=== PATIENT | male | born 1955 | race Caucasian/White ===

== ENCOUNTER 2023-04-08 11:25 | Inpatient (IN) | payer OTHER ==
[2023-04-08] MEDS ORDERED: NOREPINEPHRINE BITARTRATE/D5W 8 MG/250 ML BAG IVPB ONE (11:45)
[2023-04-08] MEDS ORDERED: MIDAZOLAM 100 MG in SODIUM CHLORIDE 100 ML IVPB SCH (12:00)
[2023-04-08] MEDS ORDERED: ACETAMINOPHEN 1000 MG/100 ML BAG IVPB ONE (12:08)
[2023-04-08] MEDS ORDERED: VASopressin 20 UNITS/ML VIAL IV ONE (12:11)
[2023-04-08] MEDS ORDERED: MIDAZOLAM IN 0.9 % SOD.CHLORID 1 MG/1 ML PLAST..BAG ONE (12:11)
[2023-04-08] MEDS: VASopressin 40 UNITS/100 ML BAG IV SCH (12:22)
[2023-04-08] MEDS ORDERED: NOREPINEPHRINE BITARTRATE 4,000 MCG in DEXTROSE 5%-WATER - 496 ML IV SCH ×2 (12:30→12:39)
[2023-04-08] MEDS ORDERED: HYDROCORTISONE SOD SUCCINATE 100 MG/2 ML VIAL IVPUSH ONE (12:38)
[2023-04-08] MEDS ORDERED: FENTANYL NS IVPB 500 MCG/100 ML BAG IVPB ONE (12:44)
[2023-04-08] MEDS ORDERED: FLUDROCORTISONE ACETATE 0.1 MG TABLET (FP) PO SCH (12:45)
[2023-04-08] MEDS: FENTANYL NS IVPB 500 MCG/100 ML BAG IVPB SCH ×2 (12:52→18:49)
[2023-04-08] MEDS ORDERED: HYDROCORTISONE SOD SUCCINATE 100 MG/2 ML VIAL ONE (12:54)
[2023-04-08 13:05] LABS: POTASSIUM 3.9 mmol/L (3.5-5.1)
[2023-04-08 13:06] LABS: HEMATOCRIT 44.1 % (35.4-49); MCH 29.8 pg (25.7-33.7); MCHC 31.7 g/dl (32.0-35.9); MEAN PLT VOLUME 7.7 fl (7.5-11.1); PLATELET COUNT 166 10^3/uL (134-434); RBC 4.69 M/mm3 (4.00-5.60); RDW 15.3 % (11.9-15.9); WHITE BLOOD COUNT 19.1 K/mm3 (4.0-10.0)
[2023-04-08] MEDS: MIDAZOLAM IN 0.9 % SOD.CHLORID 100 MG/100 ML PLAST..BAG IVPB SCH ×2 (13:06→18:48)
[2023-04-08 13:08] LABS: ALBUMIN 2.4 g/dl (3.4-5.0); BLOOD UREA NITROGEN 31.4 mg/dL (7-18); MAGNESIUM 2.4 mg/dL (1.8-2.4)
[2023-04-08 13:11] LABS: CREATININE 4.5 mg/dL (0.55-1.3)
[2023-04-08 13:12] LABS: BILIRUBIN,TOTAL 0.8 mg/dL (0.2-1); TOT PROT 5.6 g/dl (6.4-8.2)
[2023-04-08] MEDS ORDERED: DOPAMINE 400 MG/D5W - 400,000 MCG/250 ML INFUS.BAG IVPB ONE (13:30)
[2023-04-08] MEDS ORDERED: VANCOMYCIN 1,000 MG in DEXTROSE 5%-WATER - 250 ML IVPB ONE (13:31)
[2023-04-08] MEDS ORDERED: PIPERACILLIN/TAZOB 4.5 GM 4.5 GM in DEXTROSE 5%-WATER 100 ML IVPB ONE (13:31)
[2023-04-08 13:37] LABS: LACTIC ACID 12.7 mmol/L (0.4-2.0)
[2023-04-08] MEDS: NOREPINEPHRINE BITARTRATE/D5W 8 MG/250 ML BAG IVPB SCH (13:42)
[2023-04-08] MEDS: DOPAMINE 400 MG/D5W - 400,000 MCG/250 ML INFUS.BAG IVPB SCH (13:42)
[2023-04-08 13:46] LABS: CALCIUM 13.6 mg/dL (8.5-10.1); PHOSPHOROUS 8.7 mg/dL (2.5-4.9)
[2023-04-08] MEDS ORDERED: ACETAMINOPHEN 1000 MG/100 ML BAG IVPB PRN (13:48)
[2023-04-08 13:55] LABS: VENOUS BASE EXCESS -17.9 mmol/L (-2-2); VENOUS O2 SATURATION 94.9 % (70-80); VENOUS PCO2 35.7 mmHg (38-52); VENOUS PH 7.099 (7.310-7.410)
[2023-04-08 13:56] LABS: EPI CELLS 6 /uL (0-25.1); HYALINE CASTS 1 /uL (0-3.1); URINE APPEARANCE CLOUDY; URINE BACTERIA 177 /uL (0-1359); URINE BILIRUBIN NEGATIVE (NEGATIVE); URINE COLOR YELLOW; URINE GLUCOSE (UA) NEGATIVE (NEGATIVE); URINE KETONE 3+ (NEGATIVE); URINE LEUK ESTERASE NEGATIVE (NEGATIVE); URINE NITRITE NEGATIVE (NEGATIVE); URINE PROTEIN 2+ (NEGATIVE); URINE RBC 65 /uL (0-23.9); URINE UROBILINOGEN 0.2 mg/dL (0.2-1.0)
[2023-04-08 14:09] LABS: ANISOCYTOSIS 0; MACROCYTOSIS 0
[2023-04-08] MEDS ORDERED: SODIUM CHLORIDE 0.9% 500 ML INFUS.BAG IV ONE (14:55)
[2023-04-08] MEDS ORDERED: LACTATED RINGERS SOLUTION 1000 ML INFUS.BAG IV ONE ×2 (15:27→15:28)
[2023-04-08] MEDS: MUPIROCIN 2% TOPICAL OINTMENT FOR DECOLONIZATION NS SCH ×2 (15:39→22:18)
[2023-04-08 15:59] LABS: URINE WBC 307 /uL (0-25.8)
[2023-04-08] MEDS: PANTOPRAZOLE SODIUM 40 MG VIAL IVPUSH SCH (16:09)
[2023-04-08] MEDS ORDERED: VANCOMYCIN/WATER 2 GRAMS 2,000 MG/400 ML PIGGYBACK IVPB ONE (17:00)
[2023-04-08] MEDS ORDERED: SODIUM BICARBONATE 8.4% 50 MEQ/50 ML DISP.SYRIN ONE (17:28)
[2023-04-08] MEDS ORDERED: SODIUM BICARBONATE 8.4% 50 MEQ/50 ML DISP.SYRIN IVPUSH ONE (18:34)
[2023-04-08 18:50] LABS: HEMATOCRIT 40.8 % (35.4-49); HEMOGLOBIN 13.3 GM/dL (11.7-16.9); MCH 29.2 pg (25.7-33.7); MCHC 32.5 g/dl (32.0-35.9); MEAN CELL VOLUME 89.9 fl (80-96); MEAN PLT VOLUME 6.9 fl (7.5-11.1); PLATELET COUNT 104 10^3/uL (134-434); RBC 4.54 M/mm3 (4.00-5.60); RDW 14.6 % (11.9-15.9); WHITE BLOOD COUNT 18.2 K/mm3 (4.0-10.0)
[2023-04-08 20:32] LABS: INR 1.9 (0.83-1.09); PROTHROMBIN TIME (PATIENT) 21.9 SEC (9.7-13.0)
[2023-04-08 20:35] LABS: ACTIVATED PTT 43.4 SECONDS (25.2-36.5)
[2023-04-08 20:46] LABS: ANISOCYTOSIS 1+; MACROCYTOSIS 0; PLATELET ESTIMATE DECREASED
[2023-04-08] MEDS: SODIUM BICARBONATE 8.4% - 150 MEQ in DEXTROSE 5%-WATER - 1,000 ML IV SCH (22:17)
[2023-04-08] MEDS: CHLORHEXIDINE GLUCONATE 4% CLEANSER FOR DECOLONIZATION TP SCH (22:18)
[2023-04-08 22:24] LABS: ALBUMIN 2.2 g/dl (3.4-5.0); BILIRUBIN,TOTAL 1.4 mg/dL (0.2-1); BLOOD UREA NITROGEN 36.1 mg/dL (7-18); CALCIUM 7.6 mg/dL (8.5-10.1); CREATININE 4.5 mg/dL (0.55-1.3); POTASSIUM 3.6 mmol/L (3.5-5.1); TOT PROT 5.1 g/dl (6.4-8.2)
[2023-04-08 22:30] LABS: LACTIC ACID 7.3 mmol/L (0.4-2.0)
[2023-04-08] MEDS ORDERED: LACTATED RINGERS SOLUTION 1,000 ML/1,000 ML INFUS.BAG IV STA (23:46)
[2023-04-09] MEDS: PIPERACILLIN/TAZOB 2.25 GM 2.25 GM in DEXTROSE 5%-WATER - 50 ML IVPB SCH ×5 (02:05→17:31)
[2023-04-09 06:34] LABS: ARTERIAL BLD GAS O2 SATURATION 99.5 % (95-98); ARTERIAL BLOOD GAS PO2 238.9 mmHg (80-100); ARTERIAL BLOOD GAS pH 7.355 (7.350-7.450)
[2023-04-09 06:43] LABS: ALLENS TEST POSITIVE
[2023-04-09 06:44] LABS: PT'S TEMP 95.4; VENT MODE A/C; VENT RATE 18
[2023-04-09] MEDS ORDERED: INSULIN REGULAR HUMAN 100 UNITS/ML *VIAL IVPUSH ONE (07:12)
[2023-04-09] MEDS ORDERED: LACTATED RINGERS SOLUTION 1,000 ML/1,000 ML INFUS.BAG IV ONE (07:13)
[2023-04-09] MEDS ORDERED: INSULIN (NOVOLOG) ASPART 100 UNITS/ML 10ML VIAL SQ ONE ×2 (07:38→12:21)
[2023-04-09 07:59] LABS: CHLORIDE 104 mmol/L (98-107); POTASSIUM 3.5 mmol/L (3.5-5.1); SODIUM 135 mmol/L (136-145)
[2023-04-09 08:07] LABS: CALCIUM 7.3 mg/dL (8.5-10.1)
[2023-04-09 08:08] LABS: ANION GAP 14 mmol/L (4-13); BLOOD UREA NITROGEN 37.4 mg/dL (7-18); CO2 17 mmol/L (21-32); MAGNESIUM 1.7 mg/dL (1.8-2.4)
[2023-04-09 08:11] LABS: CREATININE 4.5 mg/dL (0.55-1.3); PHOSPHOROUS 2.5 mg/dL (2.5-4.9)
[2023-04-09 08:12] LABS: BILIRUBIN,TOTAL 1.4 mg/dL (0.2-1); SGPT/ALT 638 U/L (13-61); TOT PROT 4.8 g/dl (6.4-8.2)
[2023-04-09 08:13] LABS: ALK PHOS 59 U/L (45-117)
[2023-04-09] MEDS ORDERED: MAGNESIUM 1GM/D5W - 1 GM/100 ML IVPB IVPB ONE (08:19)
[2023-04-09 08:42] LABS: GLUCOSE,RANDOM 427 mg/dL (74-106); SGOT/AST 1430 U/L (15-37)
[2023-04-09 09:14] LABS: INR 1.65 (0.83-1.09)
[2023-04-09 09:33] LABS: HEMATOCRIT 42.7 % (35.4-49); HEMOGLOBIN 14.2 GM/dL (11.7-16.9); MCH 29.2 pg (25.7-33.7); MCHC 33.2 g/dl (32.0-35.9); MEAN CELL VOLUME 88.1 fl (80-96); MEAN PLT VOLUME 7.4 fl (7.5-11.1); PLATELET COUNT 67 10^3/uL (134-434); RBC 4.85 M/mm3 (4.00-5.60); RDW 14.6 % (11.9-15.9); WHITE BLOOD COUNT 15.4 K/mm3 (4.0-10.0)
[2023-04-09] MEDS: MUPIROCIN 2% TOPICAL OINTMENT FOR DECOLONIZATION NS SCH ×2 (10:00→21:20)
[2023-04-09] MEDS: FLUDROCORTISONE ACETATE 0.1 MG TABLET (FP) NGT SCH (10:01)
[2023-04-09] MEDS: PANTOPRAZOLE SODIUM 40 MG VIAL IVPUSH SCH (10:01)
[2023-04-09 10:03] LABS: LACTIC ACID 4.4 mmol/L (0.4-2.0)
[2023-04-09 10:04] LABS: ANISOCYTOSIS 3+; MACROCYTOSIS 0
[2023-04-09] MEDS: SODIUM BICARBONATE 8.4% - 150 MEQ in DEXTROSE 5%-WATER - 1,000 ML IV SCH ×2 (10:04→22:32)
[2023-04-09] MEDS: MIDAZOLAM IN 0.9 % SOD.CHLORID 100 MG/100 ML PLAST..BAG IVPB SCH (12:29)
[2023-04-09] MEDS ORDERED: INSULIN ASPART SLIDING SCALE (NOVOLOG) 1 VIAL SQ SCH (12:30)
[2023-04-09] MEDS: DOPAMINE 400 MG/D5W - 400,000 MCG/250 ML INFUS.BAG IVPB SCH (13:18)
[2023-04-09] MEDS: FENTANYL NS IVPB 500 MCG/100 ML BAG IVPB SCH (13:50)
[2023-04-09] MEDS: NOREPINEPHRINE BITARTRATE/D5W 8 MG/250 ML BAG IVPB SCH (14:37)
[2023-04-09] MEDS ORDERED: INSULIN REGULAR HUMAN 100 UNITS/ML *VIAL* (FOR IVP) IVPUSH ONE (15:43)
[2023-04-09] MEDS ORDERED: INSULIN REGULAR 100 UNITS in SODIUM CHLORIDE 99 ML IVPB SCH (15:45)
[2023-04-09] MEDS: KCL 10 MEQ IVPB 10 MEQ/100 ML INFUS.BAG IVPB SCH ×3 (16:05→17:32)
[2023-04-09] MEDS ORDERED: INSULIN REGULAR HUMAN 100 UNITS/ML *VIAL ONE ×2 (16:29→18:35)
[2023-04-09] MEDS: NOREPINEPHRINE 0.9 % NACL 8 MG/250 ML BAG IVPB SCH (17:29)
[2023-04-09] MEDS: VASopressin 40 UNITS/100 ML BAG IV SCH (17:32)
[2023-04-09] MEDS ORDERED: LACTATED RINGERS SOLUTION 1000 ML INFUS.BAG IV ONE ×3 (19:30→20:00)
[2023-04-09 20:11] LABS: BASO % 0.1 % (0-2.0); EOS % 0.7 % (0-4.5); HEMATOCRIT 35.1 % (35.4-49); HEMOGLOBIN 11.9 GM/dL (11.7-16.9); LYMPH % 12.9 % (8-40); MCH 29.5 pg (25.7-33.7); MCHC 33.8 g/dl (32.0-35.9); MEAN CELL VOLUME 87.4 fl (80-96); MEAN PLT VOLUME 7.1 fl (7.5-11.1); NEUT % 84.3 % (42.8-82.8); PLATELET COUNT 40 10^3/uL (134-434); RBC 4.02 M/mm3 (4.00-5.60); RDW 14.4 % (11.9-15.9); WHITE BLOOD COUNT 12.1 K/mm3 (4.0-10.0)
[2023-04-09 20:32] LABS: CHLORIDE 106 mmol/L (98-107); SODIUM 135 mmol/L (136-145)
[2023-04-09 20:34] LABS: CO2 18 mmol/L (21-32); GLUCOSE,RANDOM 389 mg/dL (74-106)
[2023-04-09 20:35] LABS: BLOOD UREA NITROGEN 41.8 mg/dL (7-18)
[2023-04-09 20:38] LABS: CREATININE 5.2 mg/dL (0.55-1.3)
[2023-04-09 20:41] LABS: ANION GAP 12 mmol/L (4-13); CALCIUM 6.9 mg/dL (8.5-10.1); POTASSIUM 2.9 mmol/L (3.5-5.1)
[2023-04-09] MEDS ORDERED: CALCIUM GLUC IN NACL, ISO-OSM 1 GM/50 ML BAG IVPB ONE (20:45)
[2023-04-09] MEDS: CHLORHEXIDINE GLUCONATE 4% CLEANSER FOR DECOLONIZATION TP SCH (21:20)
[2023-04-09] MEDS ORDERED: KCL 20 MEQ PREMIX BAG 20 MEQ/100 ML INFUS.BAG IVPB ONE (21:44)
[2023-04-10] MEDS: PIPERACILLIN/TAZOB 2.25 GM 2.25 GM in DEXTROSE 5%-WATER - 50 ML IVPB SCH ×3 (01:02→17:16)
[2023-04-10] MEDS: VASopressin 40 UNITS/100 ML BAG IV SCH ×3 (02:00→21:48)
[2023-04-10] MEDS: EPINEPHrine 1:1,000 1,000 MCG in DEXTROSE 5%-WATER - 249 ML IVPB SCH (02:50)
[2023-04-10 03:10] LABS: LACTIC ACID 7.2 mmol/L (0.4-2.0)
[2023-04-10 05:53] LABS: HEMATOCRIT 43.9 % (35.4-49); HEMOGLOBIN 14.9 GM/dL (11.7-16.9); MCH 29.2 pg (25.7-33.7); MCHC 33.9 g/dl (32.0-35.9); MEAN CELL VOLUME 86.1 fl (80-96); MEAN PLT VOLUME 8.5 fl (7.5-11.1); PLATELET COUNT 64 10^3/uL (134-434); RDW 15.5 % (11.9-15.9); WHITE BLOOD COUNT 7.9 K/mm3 (4.0-10.0)
[2023-04-10 06:12] LABS: CHLORIDE 106 mmol/L (98-107); SODIUM 138 mmol/L (136-145)
[2023-04-10 06:13] LABS: BLOOD UREA NITROGEN 42.4 mg/dL (7-18); CALCIUM 7.2 mg/dL (8.5-10.1); CO2 18 mmol/L (21-32); GLUCOSE,RANDOM 300 mg/dL (74-106)
[2023-04-10 06:15] LABS: ALBUMIN 1.6 g/dl (3.4-5.0)
[2023-04-10 06:16] LABS: ARTERIAL BLOOD GAS BASE EXCESS -10.4 mmol/L (-2-2); ARTERIAL BLOOD GAS PO2 72.2 mmHg (80-100); ARTERIAL BLOOD GAS pH 7.241 (7.350-7.450)
[2023-04-10 06:17] LABS: SGPT/ALT 362 U/L (13-61)
[2023-04-10 06:18] LABS: CREATININE 5.4 mg/dL (0.55-1.3); SGOT/AST 373 U/L (15-37)
[2023-04-10 06:18] LABS: VENT MODE A/C
[2023-04-10 06:19] LABS: VENT RATE 18
[2023-04-10 06:19] LABS: BILIRUBIN,TOTAL 1.1 mg/dL (0.2-1); TOT PROT 4.1 g/dl (6.4-8.2)
[2023-04-10 06:20] LABS: ALK PHOS 51 U/L (45-117)
[2023-04-10 07:04] LABS: LACTIC ACID 7.4 mmol/L (0.4-2.0)
[2023-04-10 07:04] LABS: ANION GAP 13 mmol/L (4-13); POTASSIUM 2.3 mmol/L (3.5-5.1)
[2023-04-10] MEDS ORDERED: MAGNESIUM SULFATE IN WATER 2 GM/50 ML IVPB IVPB ONE (07:56)
[2023-04-10] MEDS: KCL 20 MEQ PREMIX BAG 20 MEQ/100 ML INFUS.BAG IVPB SCH ×3 (09:00→11:00)
[2023-04-10] MEDS: INSULIN ASPART SLIDING SCALE (NOVOLOG) 1 VIAL SQ SCH ×4 (09:19→20:58)
[2023-04-10] MEDS: MUPIROCIN 2% TOPICAL OINTMENT FOR DECOLONIZATION NS SCH ×2 (09:20→21:55)
[2023-04-10] MEDS: SODIUM BICARBONATE 8.4% - 150 MEQ in DEXTROSE 5%-WATER - 1,000 ML IV SCH ×3 (09:20→21:33)
[2023-04-10] MEDS: PANTOPRAZOLE SODIUM 40 MG VIAL IVPUSH SCH (09:22)
[2023-04-10] MEDS: NOREPINEPHRINE 0.9 % NACL 8 MG/250 ML BAG IVPB SCH ×3 (09:22→23:44)
[2023-04-10] MEDS: FLUDROCORTISONE ACETATE 0.1 MG TABLET (FP) NGT SCH (09:23)
[2023-04-10 11:29] LABS: ANISOCYTOSIS 0; MACROCYTOSIS 0
[2023-04-10 13:19] VITALS: BMI 32.1
[2023-04-10] MEDS ORDERED: INSULIN (NOVOLOG) ASPART 100 UNITS/ML 10ML VIAL ONE (13:55)
[2023-04-10] MEDS ORDERED: NOREPINEPHRINE BITARTRATE 4 MG/4 ML ML IV ONE (17:08)
[2023-04-10] MEDS ORDERED: VANCOMYCIN/WATER FOR INJ (PEG) 1,000 MG/200 ML BAG IVPB ONE (18:00)
[2023-04-10 18:28] VITALS: RESP 18
[2023-04-10] MEDS: CHLORHEXIDINE GLUCONATE 4% CLEANSER FOR DECOLONIZATION TP SCH (21:55)
[2023-04-10 23:57] LABS: HEMATOCRIT 41.8 % (35.4-49); HEMOGLOBIN 14.1 GM/dL (11.7-16.9); MCH 28.6 pg (25.7-33.7); MCHC 33.7 g/dl (32.0-35.9); MEAN CELL VOLUME 84.8 fl (80-96); MEAN PLT VOLUME 8.9 fl (7.5-11.1); RBC 4.93 M/mm3 (4.00-5.60); RDW 16.3 % (11.9-15.9); WHITE BLOOD COUNT 13.7 K/mm3 (4.0-10.0)
[2023-04-11 00:02] LABS: PLATELET COUNT 27 10^3/uL (134-434)
[2023-04-11] MEDS: INSULIN ASPART SLIDING SCALE (NOVOLOG) 1 VIAL SQ SCH ×7 (01:37→23:59)
[2023-04-11] MEDS: PIPERACILLIN/TAZOB 2.25 GM 2.25 GM in DEXTROSE 5%-WATER - 50 ML IVPB SCH ×3 (02:05→17:12)
[2023-04-11 04:25] LABS: PLATELET ESTIMATE DECREASED
[2023-04-11] MEDS: NOREPINEPHRINE 0.9 % NACL 8 MG/250 ML BAG IVPB SCH ×4 (05:11→20:47)
[2023-04-11] MEDS: SODIUM BICARBONATE 8.4% - 150 MEQ in DEXTROSE 5%-WATER - 1,000 ML IV SCH (06:03)
[2023-04-11 06:18] LABS: ARTERIAL BLD GAS O2 SATURATION 98.8 % (95-98); ARTERIAL BLOOD GAS PO2 143.2 mmHg (80-100); ARTERIAL BLOOD GAS pH 7.366 (7.350-7.450)
[2023-04-11 06:31] LABS: VENT MODE A/C; VENT RATE 18
[2023-04-11 07:06] LABS: HEMATOCRIT 39.9 % (35.4-49); HEMOGLOBIN 13.6 GM/dL (11.7-16.9); MCH 28.8 pg (25.7-33.7); MEAN CELL VOLUME 84.7 fl (80-96); MEAN PLT VOLUME 8.4 fl (7.5-11.1); RBC 4.71 M/mm3 (4.00-5.60); RDW 16.3 % (11.9-15.9)
[2023-04-11 07:18] LABS: POTASSIUM 3.4 mmol/L (3.5-5.1)
[2023-04-11 07:20] LABS: PLATELET COUNT 36 10^3/uL (134-434)
[2023-04-11 07:38] LABS: ALBUMIN 1.6 g/dl (3.4-5.0); BLOOD UREA NITROGEN 46.5 mg/dL (7-18); CALCIUM 7.5 mg/dL (8.5-10.1); MAGNESIUM 1.5 mg/dL (1.8-2.4)
[2023-04-11 07:40] LABS: PHOSPHOROUS 4.3 mg/dL (2.5-4.9)
[2023-04-11 07:41] LABS: BILIRUBIN,TOTAL 1.3 mg/dL (0.2-1); CREATININE 5.7 mg/dL (0.55-1.3); TOT PROT 4.1 g/dl (6.4-8.2)
[2023-04-11 09:19] LABS: ANISOCYTOSIS 0; MACROCYTOSIS 0
[2023-04-11] MEDS ORDERED: MAGNESIUM SULFATE IN WATER 2 GM/50 ML IVPB IVPB ONE (09:30)
[2023-04-11] MEDS ORDERED: INSULIN (NOVOLOG) ASPART 100 UNITS/ML 10ML VIAL ONE (09:41)
[2023-04-11] MEDS: MUPIROCIN 2% TOPICAL OINTMENT FOR DECOLONIZATION NS SCH ×2 (09:48→21:04)
[2023-04-11] MEDS: FLUDROCORTISONE ACETATE 0.1 MG TABLET (FP) NGT SCH (09:48)
[2023-04-11] MEDS: PANTOPRAZOLE SODIUM 40 MG VIAL IVPUSH SCH (09:49)
[2023-04-11] MEDS ORDERED: NOREPINEPHRINE BITARTRATE 4 MG/4 ML ML IV ONE ×3 (10:29→20:42)
[2023-04-11] MEDS: KCL 20 MEQ PREMIX BAG 20 MEQ/100 ML INFUS.BAG IVPB SCH ×3 (11:00→14:00)
[2023-04-11] MEDS: VASopressin 40 UNITS/100 ML BAG IV SCH (13:39)
[2023-04-11] MEDS: CHLORHEXIDINE GLUCONATE 4% CLEANSER FOR DECOLONIZATION TP SCH (21:04)
[2023-04-11] MEDS: EPINEPHrine 1:1,000 1,000 MCG in DEXTROSE 5%-WATER - 249 ML IVPB SCH (21:04)
[2023-04-12] MEDS: PIPERACILLIN/TAZOB 2.25 GM 2.25 GM in DEXTROSE 5%-WATER - 50 ML IVPB SCH ×2 (01:01→09:26)
[2023-04-12] MEDS: NOREPINEPHRINE 0.9 % NACL 8 MG/250 ML BAG IVPB SCH ×2 (02:28→08:30)
[2023-04-12] MEDS: INSULIN ASPART SLIDING SCALE (NOVOLOG) 1 VIAL SQ SCH ×4 (05:14→10:58)
[2023-04-12 07:24] LABS: MCH 28.9 pg (25.7-33.7); MEAN PLT VOLUME 9.9 fl (7.5-11.1); RBC 4.83 M/mm3 (4.00-5.60); RDW 16.5 % (11.9-15.9)
[2023-04-12 07:41] LABS: POTASSIUM 4.1 mmol/L (3.5-5.1)
[2023-04-12 07:42] LABS: BLOOD UREA NITROGEN 51.2 mg/dL (7-18); CALCIUM 8.3 mg/dL (8.5-10.1)
[2023-04-12 07:44] LABS: ALBUMIN 1.5 g/dl (3.4-5.0)
[2023-04-12 07:46] LABS: PHOSPHOROUS 3.7 mg/dL (2.5-4.9)
[2023-04-12 07:47] LABS: BILIRUBIN,TOTAL 1.5 mg/dL (0.2-1); TOT PROT 4.2 g/dl (6.4-8.2)
[2023-04-12 08:38] LABS: ANISOCYTOSIS 2+; MACROCYTOSIS 0
[2023-04-12 08:41] LABS: PLATELET COUNT 19 10^3/uL (134-434)
[2023-04-12] MEDS: MUPIROCIN 2% TOPICAL OINTMENT FOR DECOLONIZATION NS SCH (09:26)
[2023-04-12] MEDS: PANTOPRAZOLE SODIUM 40 MG VIAL IVPUSH SCH (09:26)
[2023-04-12] MEDS: FLUDROCORTISONE ACETATE 0.1 MG TABLET (FP) NGT SCH (09:26)
[2023-04-12 09:27] VITALS: PULSE 88
[2023-04-12 11:10] VITALS: BP 146/86; TEMP 97.7
== END 2023-04-12 11:46 | disposition expired | DRG 870 ==
LOC: JER 11:25 → JERBED 13:23 → JICU 14:46
PROVIDERS: ADMIT Internal Medicine Pulmonary Disease; ATTEND Internal Medicine Pulmonary Disease
PROC: 5A1955Z Respiratory Ventilation, Greater than 96 Consecutive Hours (ICD-10-PCS; principal; 2023-04-08)
PROC: 04HY32Z Insertion of Monitoring Device into Lower Artery, Percutaneous Approach (ICD-10-PCS; 2023-04-09)
PROC: 4A133B1 Monitoring of Arterial Pressure, Peripheral, Percutaneous Approach (ICD-10-PCS; 2023-04-09)
PROC: 4A133J1 Monitoring of Arterial Pulse, Peripheral, Percutaneous Approach (ICD-10-PCS; 2023-04-09)
PROC: 30233N1 Transfusion of Nonautologous Red Blood Cells into Peripheral Vein, Percutaneous Approach (ICD-10-PCS; 2023-04-09)
DX: A41.9 Sepsis, unspecified organism (principal); I21.4 Non-ST elevation (NSTEMI) myocardial infarction; J18.9 Pneumonia, unspecified organism; J96.00 Acute respiratory failure, unspecified whether with hypoxia or hypercapnia; R65.21 Severe sepsis with septic shock; N17.9 Acute kidney failure, unspecified; G93.1 Anoxic brain damage, not elsewhere classified; E87.20 Acidosis, unspecified; K92.2 Gastrointestinal hemorrhage, unspecified; C43.9 Malignant melanoma of skin, unspecified; E87.6 Hypokalemia; D69.6 Thrombocytopenia, unspecified
CPT/HCPCS: 0241U-QW; 36415; 36430; 36600; 70450-TC; 71045-TC-FY; 71250-TC; 72125-TC; 76937; 80048; 80053; 81003; 82272; 82803; 82962; 83605; 83735; 84100; 84484; 85025; 85379; 85384; 85610; 85730; 86850; 86900; 86901; 86922; 87040; 87070; 87081; 87086; 87205; 87899; 93306-TC; 93308; 94002; 99291; 99292; G0480; J3490; P9012; P9017; P9034; P9038; P9058